=== PATIENT | female | born 1955 | race Caucasian/White ===

== ENCOUNTER 2018-12-28 06:51 | Day surgery (SDC) | payer BC ==
[~2018-12-28] VITALS: Ht 167.6 cm; Wt 85.7 kg
[~2018-12-28 06:51] MED LIST: ASPI81CH PO; ATECHL PO; ATEN25; ESTR.1TPW TOP; ESTR2 PO; POTA8 PO; [UNRECOGNIZED DRUG - REMARK]
[2018-12-28] MEDS ORDERED: METO50ER (07:25)
--- NOTE | 2018-12-28 07:27 | NUR ---
12/28/18 0727 Martita Franklin 1 MISSED IV IN RW BY MA VEIN BLEW 1 GOOD IV IN RAC PT TOW
== END 2018-12-28 08:35 | disposition home or self-care (01) ==
LOC: ORSCSDS 06:51
PROVIDERS: Surgery
PROC: 0DBM8ZX Excision of Descending Colon, Via Natural or Artificial Opening Endoscopic, Diagnostic (ICD-10-PCS; principal; 2018-12-28 08:00)
DX: Z12.11 Encounter for screening for malignant neoplasm of colon (principal); Z86.010 Personal history of colon polyps; K63.5 Polyp of colon; K57.30 Diverticulosis of large intestine without perforation or abscess without bleeding; I10 Essential (primary) hypertension; E78.5 Hyperlipidemia, unspecified; F17.210 Nicotine dependence, cigarettes, uncomplicated; Z79.899 Other long term (current) drug therapy
CPT/HCPCS: 88305; J0330; J0461; J2405; J2704; J7120

== ENCOUNTER → 2021-02-17 | Outpatient (CLI) | payer MEDICARE, OTHER ==
[~2021-02-17] MED LIST changes: +ATOR20 PO; +CO Q10100 MG PO; -ESTR.1TPW TOP; +ESTRADIOL1 M1 PO; +METO50ER PO; +NAPR220 PO; +XARELTO20 MG PO
== END | disposition home or self-care (01) ==
LOC: LAB SHORT 14:49
DX: N30.01 Acute cystitis with hematuria (principal)
CPT/HCPCS: 87086

== ENCOUNTER → 2022-01-20 | Outpatient (CLI) | payer MEDICARE | END | disposition home or self-care (01) | LOC: LAB SHORT 16:30 → LAB 16:30 | DX: N30.01 Acute cystitis with hematuria (principal) | CPT/HCPCS: 87077; 87086; 87186 ==

== ENCOUNTER → 2022-01-26 | Outpatient (CLI) | payer MEDICARE | END | disposition home or self-care (01) | LOC: LAB SHORT 10:14 → LAB 10:14 | DX: E55.9 Vitamin D deficiency, unspecified (principal) | CPT/HCPCS: 82306 ==

== ENCOUNTER → 2022-09-08 | Outpatient (CLI) | payer MEDICARE ==
[2022-09-08 15:55] LABS: BASOPHILS ABSOLUTE AUTO 0.05 K/mm3 (0.00-0.23); BASOPHILS PERCENT AUTO 1 % (0-2); EOSINOPHILS ABSOLUTE AUTO 0.12 K/mm3 (0.00-0.68); EOSINOPHILS PERCENT AUTO 2 % (0-6); Hematocrit 45.5 % (33.0-51.0); Hemoglobin 14.9 g/dL (11.5-16.0); IMMATURE GRAN ABSOLUTE AUTO 0.01 K/mm3 (0.00-0.10); IMMATURE GRAN PERCENT AUTO 0 % (0-1); LYMPHOCYTES ABSOLUTE AUTO 2.13 K/mm3 (0.84-5.20); LYMPHOCYTES PERCENT AUTO 42 % (21-46); MONOCYTES ABSOLUTE AUTO 0.47 K/mm3 (0.16-1.47); MONOCYTES PERCENT AUTO 9 % (4-13); Mean Corpuscular HGB 29.8 pg (26.0-34.0); Mean Corpuscular HGB Conc 32.7 g/dL (31.5-36.5); Mean Corpuscular Volume 91 fL (80-100); Mean Platelet Volume 11.8 fL (9.1-12.4); NEUTROPHILS ABSOLUTE AUTO 2.35 K/mm3 (1.96-9.15); NEUTROPHILS PERCENT AUTO 46 % (41-73); Platelet Count 219 K/mm3 (150-400); RDW Coefficient Variation 13.2 % (11.7-14.2); RDW Standard Deviation 44.2 fL (35.1-46.3); White Blood Cell Count 5.13 K/mm3 (4.00-11.30)
[2022-09-08 16:06] LABS: Alanine Aminotransfer (ALT/SGP 31 U/L (12-78); Albumin, Blood 3.6 g/dL (3.4-5.0); Albumin/Globulin Ratio 1.2 (0.8-1.8); Alk Phos 101 U/L (50-136); Anion Gap 7 mmol/L (6-16); Aspartate Aminotrans (AST/SGOT 19 U/L (12-37); Bilirubin, Total 0.6 mg/dL (0.1-1.0); Blood Urea Nitrogen 16 mg/dL (8-24); Bun/Creatinine Ratio 28.3 (12.0-20.0); CHOL/HDL RATIO 3.8; CO2, Blood 26 mmol/L (21-32); Calcium, Blood 8.7 mg/dL (8.5-10.1); Chloride, Blood 110 mmol/L (98-108); Cholesterol 158 mg/dL (50-200); Creatinine, Blood 0.57 mg/dL (0.40-1.00); Globulin, Blood 2.9 g/dL (2.2-4.0); Glomerular Filtration Rate 99 (60-); Glucose, Blood 120 mg/dL (70-99); HDL Cholesterol 42 mg/dL (>39); LDL/HDL RATIO 1.9; Low Density Lipoprotein Chol 78 mg/dL (0-110); Potassium, Blood 4.3 mmol/L (3.5-5.5); Sodium, Blood 143 mmol/L (136-145); Total Protein, Blood 6.5 g/dL (6.4-8.2); Triglycerides 191 mg/dL (30-160); Very Low Density Lipoprot Chol 38 mg/dL (6-32)
== END | disposition home or self-care (01) ==
LOC: LAB SHORT 08:50 → LAB 08:50
PROVIDERS: Hospitalist
DX: I48.0 Paroxysmal atrial fibrillation (principal); I10 Essential (primary) hypertension
CPT/HCPCS: 80053; 80061; 85025

== ENCOUNTER → 2023-04-25 | Outpatient (CLI) | payer MEDICARE ==
[2023-04-25 16:24] LABS: BASOPHILS ABSOLUTE AUTO 0.06 K/mm3 (0.00-0.23); BASOPHILS PERCENT AUTO 1 % (0-2); EOSINOPHILS PERCENT AUTO 1 % (0-6); Hematocrit 44.4 % (33.0-51.0); Hemoglobin 14.7 g/dL (11.5-16.0); IMMATURE GRAN ABSOLUTE AUTO 0.02 K/mm3 (0.00-0.10); IMMATURE GRAN PERCENT AUTO 0 % (0-1); LYMPHOCYTES ABSOLUTE AUTO 2.77 K/mm3 (0.84-5.20); LYMPHOCYTES PERCENT AUTO 40 % (21-46); MONOCYTES ABSOLUTE AUTO 0.55 K/mm3 (0.16-1.47); MONOCYTES PERCENT AUTO 8 % (4-13); Mean Corpuscular HGB 29.9 pg (26.0-34.0); Mean Corpuscular HGB Conc 33.1 g/dL (31.5-36.5); Mean Corpuscular Volume 90 fL (80-100); Mean Platelet Volume 11.7 fL (9.1-12.4); NEUTROPHILS ABSOLUTE AUTO 3.51 K/mm3 (1.96-9.15); NEUTROPHILS PERCENT AUTO 50 % (41-73); Platelet Count 230 K/mm3 (150-400); RDW Standard Deviation 43.2 fL (35.1-46.3); Red Blood Cell Count 4.92 M/mm3 (3.80-5.20); White Blood Cell Count 7.01 K/mm3 (4.00-11.30)
[2023-04-26 14:11] LABS: A/G RATIO 1.9 (1.2-2.2); BILIRUBIN, TOTAL 0.6 mg/dL (0.0-1.2); CALCIUM, SERUM 9.3 mg/dL (8.7-10.3); CREATININE, SERUM 0.61 mg/dL (0.57-1.00); GLOBULIN, TOTAL 2.4 g/dL (1.5-4.5); POTASSIUM, SERUM 4.4 mmol/L (3.5-5.2); PROTEIN, TOTAL, SERUM 6.9 g/dL (6.0-8.5)
== END | disposition home or self-care (01) ==
LOC: LAB 12:00 → LAB SHORT 12:00
PROVIDERS: Hospitalist
DX: L50.9 Urticaria, unspecified (principal)
CPT/HCPCS: 80053; 85025

== ENCOUNTER 2023-11-12 08:35 | Inpatient (IN) | payer MEDICARE ==
[2023-11-12] VITALS (37 sets, daily range): BP systolic 83–115; BP diastolic 41–92
[~2023-11-12] VITALS: Ht 154.9 cm; Wt 102.5 kg
[2023-11-12] MEDS ORDERED: propofoL 100 ML IV ONE (08:37)
[2023-11-12] MEDS ORDERED: propofoL 100 ML IV SCH (08:45)
[2023-11-12 08:51] LABS: BASOPHILS ABSOLUTE AUTO 0.06 K/mm3 (0.00-0.23); BASOPHILS PERCENT AUTO 1 % (0-2); EOSINOPHILS ABSOLUTE AUTO 0.28 K/mm3 (0.00-0.68); EOSINOPHILS PERCENT AUTO 3 % (0-6); Hematocrit 44.4 % (33.0-51.0); Hemoglobin 14.5 g/dL (11.5-16.0); IMMATURE GRAN ABSOLUTE AUTO 0.06 K/mm3 (0.00-0.10); IMMATURE GRAN PERCENT AUTO 1 % (0-1); LYMPHOCYTES ABSOLUTE AUTO 5.65 K/mm3 (0.84-5.20); LYMPHOCYTES PERCENT AUTO 51 % (21-46); MONOCYTES ABSOLUTE AUTO 0.44 K/mm3 (0.16-1.47); MONOCYTES PERCENT AUTO 4 % (4-13); Mean Corpuscular HGB 30.4 pg (26.0-34.0); Mean Corpuscular HGB Conc 32.7 g/dL (31.5-36.5); Mean Corpuscular Volume 93 fL (80-100); Mean Platelet Volume 10.6 fL (9.1-12.4); NEUTROPHILS ABSOLUTE AUTO 4.57 K/mm3 (1.96-9.15); NEUTROPHILS PERCENT AUTO 41 % (41-73); Platelet Count 241 K/mm3 (150-400); RDW Coefficient Variation 13.2 % (11.7-14.2); RDW Standard Deviation 45.6 fL (35.1-46.3); Red Blood Cell Count 4.77 M/mm3 (3.80-5.20); White Blood Cell Count 11.06 K/mm3 (4.00-11.30)
[2023-11-12 08:56] LABS: Base Excess Venous -8.5 mmol/L; PCO2 Venous 63.7 mmHg (38-42); pH Blood Venous 7.12 (7.34-7.37)
[2023-11-12 09:10] LABS: Albumin, Blood 3.5 g/dL (3.4-5.0); Bilirubin, Total 0.6 mg/dL (0.1-1.0); Bun/Creatinine Ratio 27.9 (12.0-20.0); Calcium, Blood 7.8 mg/dL (8.5-10.1); Creatinine, Blood 0.68 mg/dL (0.40-1.00); Globulin, Blood 3.6 g/dL (2.2-4.0); Potassium, Blood 3.9 mmol/L (3.5-5.5); Total Protein, Blood 7.1 g/dL (6.4-8.2)
[2023-11-12] MEDS ORDERED: CefTRIAXone Sodium 1,000 MG in NS 100 ML IV ONE (09:10)
[2023-11-12] MEDS ORDERED: Azithromycin 500 MG in NS 250 ML IV ONE (09:10)
[2023-11-12] MEDS ORDERED: Furosemide 10 MG/ML 4ML Vial IV ONE (09:35)
[2023-11-12 10:00] LABS: Influenza A, PCR NEGATIVE (NEGATIVE); Influenza B, PCR NEGATIVE (NEGATIVE); Resp Syncytial Virus, PCR NEGATIVE (NEGATIVE); SARS-Cov-2 (COVID-19) PCR, MMC NEGATIVE (NEGATIVE)
[2023-11-12] MEDS ORDERED: FentaNYL Citrate 50 MCG/ML 2 ML Injection IV ONE (10:10)
[2023-11-12] MEDS ORDERED: Nitroglycerin 1 INCH/GM PKT TOP ONE (10:25)
[2023-11-12] MEDS ORDERED: Acetaminophen 325 MG TABLET PO PRN (11:30)
[2023-11-12] MEDS ORDERED: Midazolam HCL 1 MG/ML 5MLVIAL IV ONE (11:30)
[2023-11-12] MEDS ORDERED: FentaNYL Citrate 50 MCG/ML 2 ML Injection IV PRN (11:30)
[2023-11-12 13:29] LABS: PCO2 Arterial 39.7 mmHg (35-45); PO2 Arterial 71.6 mmHg (80-100); pH Blood Arterial 7.42 (7.35-7.45)
[2023-11-12 13:35] LABS: Source, Urine Foley catheter
[2023-11-12 13:43] LABS: Appearance, Urine Clear (Clear); Bilirubin, Urine Neg (Neg); Blood, Urine Neg (Neg); Glucose Qualitative, Urine Neg (Neg); Ketones, Urine Neg (Neg); Leukocyte Esterase, Urine Neg (Neg); Nitrite, Urine Neg (Neg); Protein, Urine Neg (Neg); Urobilinogen, Urine NORM (Normal)
[2023-11-12 13:44] LABS: International Normalized Ratio 1.11; Prothrombin Time Results 11.8 Sec (9.7-11.5)
[2023-11-12] MEDS ORDERED: CLIMARA1 EACH TOP (13:45)
[2023-11-12 13:48] LABS: Anti-Xa UFH, PHA Monitoring 1.42 IU/mL
[2023-11-12 13:51] LABS: Color, Urine Pale Yellow (P-Yellow)
[2023-11-12] MEDS ORDERED: Hydrogen Peroxide 1.5 % Solution MT SCH (16:00)
[2023-11-12 16:15] LABS: Bun/Creatinine Ratio 26.7 (12.0-20.0); Calcium, Blood 8.5 mg/dL (8.5-10.1); Creatinine, Blood 0.64 mg/dL (0.40-1.00); Potassium, Blood 3.7 mmol/L (3.5-5.5)
[2023-11-12] MEDS ORDERED: NS 500 ML IV ONE ×2 (16:53→16:55)
[2023-11-12] MEDS ORDERED: Lactated Ringer's 1,000 ML IV SCH (17:30)
--- NOTE | 2023-11-12 17:35 | NUR ---
REASSESSMENT PT REMAINS INTUBATED AND SEDATED. PT'S BP HAS BEEN BORDERLINE WITH MAP 60-64. SPOKE WITH DR. FERRER AND HE GAVE ORDERS FOR 500ML NS BOLUS. PT'S MAP RESPONDED TO THE FLUID, INCREASING TO THE 70S, SO DR. FERRER ORDERED MAINTENANCE FLUIDS. ECHO COMPLETED AND RESULTS REVIEWED BY DR. FERRER. LUNGS ARE CLEAR, SR WITH 1ST DEGREE AVB. HILLMAN DRAINING YELLOW URINE. OGT WITH SCANT LIGHT GREEN OUTPUT. PT'S WAS AT THE BEDSIDE AND WAS UPDATED BY NURSING STAFF AND DR. FERRER.
[2023-11-12] MEDS ORDERED: Furosemide 10 MG/ML 4ML Vial IV SCH (18:00)
--- NOTE | 2023-11-12 19:37 | NUR ---
Assumed care of pt at 1900 Pt resting on bed, rass score of -2. Will open eyes on command and make brief eye contact before dozing off. , Magen, at bedside- requests no visitors after he leaves for the evening. PT has propofol infusing at 30mcg/kg/min and LR @100ml/hr. PT on vent, settings ac/vc: 16/5/450/40. Tolerating well. Hr is nsr, rate of 63, bp soft 102/58- map>65. Pt skin intact and appropriate color for ethnicity- pink/warm/dry. Pt has temp probe krishnamurthy draining pale, hazy urine w/ that is pink tinged to gravity. Current temp 99.9. OG tube connected to low intermittent suction- yellow bilious drainage. ETT suctioning small amounts of white sputum. Plan of care ongoing.
[2023-11-12] MEDS ORDERED: Cetylpyridinium Chloride 1 EA MISC MT SCH (20:00)
[2023-11-12] MEDS ORDERED: Heparin Sodium,Porcine/0.5 NS 500 ML IV SCH (21:05)
[2023-11-13] VITALS (47 sets, daily range): BP systolic 106–184; BP diastolic 43–117
--- NOTE | 2023-11-13 05:07 | NUR ---
End of shift summary No acute events overnight. Current rass score -1. Pt sustains eye contact and follows commands. Using paper and pen to communicate or nodding yes/no. Propofol infusing at 30mcg/kg/min, LR at 100ml/hr, and heparin at 15units/kg/hr. Pt vent settings unchanged from start of shift. Tolerating well. Pt hr 50-60s NSR via continous radiographer cardiac catheterization. BP stable. No bowel movement this shift. Temp probe krishnamurthy patent and draining hazy, pale yellow urine to gravity. OG tube draining dark green/brown liquid- 450 out during shift. Bed back given to pt. Pt required one dose of pain medication with good effect. Plan of care ongoing.
[2023-11-13 05:08] LABS: BASOPHILS ABSOLUTE AUTO 0.04 K/mm3 (0.00-0.23); BASOPHILS PERCENT AUTO 0 % (0-2); EOSINOPHILS ABSOLUTE AUTO 0.06 K/mm3 (0.00-0.68); EOSINOPHILS PERCENT AUTO 1 % (0-6); Hematocrit 37.7 % (33.0-51.0); Hemoglobin 12.6 g/dL (11.5-16.0); IMMATURE GRAN ABSOLUTE AUTO 0.03 K/mm3 (0.00-0.10); IMMATURE GRAN PERCENT AUTO 0 % (0-1); LYMPHOCYTES ABSOLUTE AUTO 3.23 K/mm3 (0.84-5.20); LYMPHOCYTES PERCENT AUTO 32 % (21-46); MONOCYTES ABSOLUTE AUTO 0.75 K/mm3 (0.16-1.47); MONOCYTES PERCENT AUTO 7 % (4-13); Mean Corpuscular HGB 30.4 pg (26.0-34.0); Mean Corpuscular HGB Conc 33.4 g/dL (31.5-36.5); Mean Corpuscular Volume 91 fL (80-100); Mean Platelet Volume 10.4 fL (9.1-12.4); NEUTROPHILS ABSOLUTE AUTO 6.11 K/mm3 (1.96-9.15); NEUTROPHILS PERCENT AUTO 60 % (41-73); Platelet Count 176 K/mm3 (150-400); RDW Coefficient Variation 13.6 % (11.7-14.2); RDW Standard Deviation 45.4 fL (35.1-46.3); Red Blood Cell Count 4.14 M/mm3 (3.80-5.20); White Blood Cell Count 10.22 K/mm3 (4.00-11.30)
[2023-11-13] MEDS ORDERED: Dose Adjust by Pharmacy XX STA ×3 (05:46→19:35)
[2023-11-13 05:48] LABS: Albumin, Blood 3.1 g/dL (3.4-5.0); Albumin/Globulin Ratio 1.1 (0.8-1.8); Bun/Creatinine Ratio 26.4 (12.0-20.0); Creatinine, Blood 0.61 mg/dL (0.40-1.00); Globulin, Blood 2.9 g/dL (2.2-4.0); Magnesium, Blood 1.7 mg/dL (1.6-2.4); Phosphorus, Blood 2.6 mg/dL (2.5-4.9); Potassium, Blood 3.1 mmol/L (3.5-5.5)
[2023-11-13] MEDS ORDERED: Heparin Sodium 5000 Units/ML 1ML MDV IV ONE ×2 (05:50→12:40)
[2023-11-13] MEDS ORDERED: Pantoprazole Sodium 40 MG Injection IV SCH (06:00)
[2023-11-13] MEDS ORDERED: HydrALAZINE HCl 20 MG / ML 1ML Vial IV PRN (08:40)
[2023-11-13] MEDS ORDERED: Potassium Chloride 40 MEQ in NS 250 ML IV ONE (08:50)
[2023-11-13] MEDS ORDERED: Aspirin 300 MG Supp PR SCH (09:00)
[2023-11-13] MEDS ORDERED: Enoxaparin 40 MG/0.4 ML SYR SC SCH (09:00)
--- NOTE | 2023-11-13 09:19 | NUR ---
EXTUBATE PT'S PROPOFOL TURNED OFF AT 0715 FOR SEDATION VACATION AND PT QUICKLY BECAME ALERT, FOLLOWING COMMANDS AND WRITING LEGIBLY TO COMMUNICATE. RT NOTIFIED AND PT SWITCHED TO SPONTANEOUS FOR WEAN. PT TOLERATED WEAN WELL. ONLY CHANGE WAS PT WENT INTO AFIB WITH RATE IN THE 80S. DR. FERRER TO THE BEDSIDE FOR MORNING ROUNDS AFTER PT HAD BEEN ON WEAN FOR OVER 30 MINUTES AND GAVE ORDER TO EXTUBATE. PT EXTUBATED AND PUT ON 4L/NC AT 0915, SPO2 96%. PT AND HER , WHO HAS BEEN AT THE BEDSIDE, GIVEN POST EXTUBATION EDUCATION.
--- NOTE | 2023-11-13 13:44 | NUR ---
REASSESSMENT PT HAS DONE WELL SINCE EXTUBATION AND IS MAINTAINING SPO2 ABOVE 90% ON RA. LUNGS HAVE SOME COARSENESS IN THE BASES AND PT IS COUGHING UP A SMALL AMT OF ZARATE SPUTUM. PT REMAINS IN AFIB, RATE IN THE 80S. PT PASSED BEDSIDE SWALLOW SCREEN AND IS TOLERATING A FULL LIQUID DIET. PT STATES HER THROAT HAS BEEN SORE, SO WILL ADVANCE DIET SHE WISHES. HILLMAN REMOVED AND PT HAS VOIDED SINCE. PT GOT UP TO THE CHAIR WITH 1 PERSON ASSIST AND IS VISITING WITH FAMILY. PT'S HAS BEEN AT THE BEDSIDE AND WAS UPDATED BY YELENA BO AND GABRIELA.
--- NOTE | 2023-11-13 17:06 | NUR ---
SHIFT SUMMARY PT WAS EXTUBATED THIS MORNING AND IS MAINTAINING SPO2 GREATER THAN 90 ON RA. HER LUNGS ARE CLEAR THIS AFTERNOON, DIM IN THE BASES. SHE IS NOT COUGHING UP MUCH SPUTUM THIS MORNING. REMAISNIN AFIB, RATE IN THE 80S, BP STABLE. PT'S THROAT IS FEELING BETTER AND DIET WAS ADVANCED. VOIDING WITHOUT DIFFICULTY. THIS AFTERNOON DR. FERRER GAVE OK FOR PT TO BE PCU STATUS.
[2023-11-13] MEDS ORDERED: Atorvastatin 40 MG Tab PO SCH (18:00)
[2023-11-13] MEDS ORDERED: Metoprolol Succinate 50 MG TABCR PO ONE (19:55)
--- NOTE | 2023-11-13 21:48 | NUR ---
ASSUMPTION OF CARE: RECEIVED REPORT FROM LITO Robles RN AT 1915. PT ALERT AND ORIENTED X4. ANSWERS QUESTIONS, FOLLOWS COMMANDS AND IS COOPERATIVE WITH CARE. PT ON RA WITH SPO2 >95% WITH SPOT CHECKS. DENIES SOB. CHIEF CONTROLLER IN PLACE, AFIB WITH HR 90'S-100'S. SBP 180'S. CALL PLACED TO DR. HAMM, HOME DOSE OF METOPROLOL RESTARTED AND GIVEN THIS EVENING. PT DENIES CHEST PAIN/PRESSURE. AFEBRILE. PIVS TO RAC/LAC AND LH PATENT. HEPARIN INFUSING AT 21 UNITS/KG/HR. PT TOLERATING PO INTAKE. ABLE TO AMBULATE TO BATHROOM WITH ASSIST. VOIDING YELLOW URINE. AT BEDSIDE, UPDATED TO PLAN OF CARE AND LEFT FOR THE EVENING. PT PCU STATUS, WILL BE TRANSFERRING TO PCU 6 ONCE REPORT IS GIVEN. BED LOW AND LOCKED, CALL LIGHT IN REACH.
--- NOTE | 2023-11-13 22:10 | NUR ---
Pt transferred to PCU room 6 Pt arrives on unit for ICU via wheelchair, transfers w/ steady gait and stand by line assist. Pt is alert and oriented- speaking in full sentances and pleasant/cooperative. Pt is on room air, o2 sats are 95%, lung sounds clear. Pt attatched to tele monitor- afib rate of 90s observed. Bp stable. Pt denies cp or sob at this time. Pt has heparin infusing to IV in left hand at rate of 21units/kg/hr. Pt provided call light and she will call for any needs that arise. Plan for angiogram tomorrow am, pt informed she will be NPO after midnight. Plan of care ongoing.
[2023-11-14] VITALS (13 sets, daily range): BP systolic 84–175; BP diastolic 59–113
[2023-11-14 01:47] LABS: BASOPHILS ABSOLUTE AUTO 0.06 K/mm3 (0.00-0.23); BASOPHILS PERCENT AUTO 1 % (0-2); EOSINOPHILS ABSOLUTE AUTO 0.19 K/mm3 (0.00-0.68); EOSINOPHILS PERCENT AUTO 2 % (0-6); Hematocrit 39.8 % (33.0-51.0); Hemoglobin 13.5 g/dL (11.5-16.0); IMMATURE GRAN ABSOLUTE AUTO 0.03 K/mm3 (0.00-0.10); IMMATURE GRAN PERCENT AUTO 0 % (0-1); LYMPHOCYTES ABSOLUTE AUTO 3.88 K/mm3 (0.84-5.20); LYMPHOCYTES PERCENT AUTO 44 % (21-46); MONOCYTES ABSOLUTE AUTO 0.76 K/mm3 (0.16-1.47); MONOCYTES PERCENT AUTO 9 % (4-13); Mean Corpuscular HGB 30.4 pg (26.0-34.0); Mean Corpuscular HGB Conc 33.9 g/dL (31.5-36.5); Mean Corpuscular Volume 90 fL (80-100); NEUTROPHILS ABSOLUTE AUTO 3.87 K/mm3 (1.96-9.15); NEUTROPHILS PERCENT AUTO 44 % (41-73); Platelet Count 195 K/mm3 (150-400); RDW Coefficient Variation 13.3 % (11.7-14.2); RDW Standard Deviation 43.6 fL (35.1-46.3); Red Blood Cell Count 4.44 M/mm3 (3.80-5.20); White Blood Cell Count 8.79 K/mm3 (4.00-11.30)
[2023-11-14 02:07] LABS: Albumin, Blood 3.2 g/dL (3.4-5.0); Albumin/Globulin Ratio 0.9 (0.8-1.8); Bilirubin, Total 0.9 mg/dL (0.1-1.0); Bun/Creatinine Ratio 20.1 (12.0-20.0); Calcium, Blood 8.2 mg/dL (8.5-10.1); Creatinine, Blood 0.5 mg/dL (0.40-1.00); Globulin, Blood 3.5 g/dL (2.2-4.0); Potassium, Blood 3.3 mmol/L (3.5-5.5); Total Protein, Blood 6.7 g/dL (6.4-8.2)
[2023-11-14] MEDS ORDERED: Dose Adjust by Pharmacy XX STA ×2 (02:11→09:49)
[2023-11-14] MEDS ORDERED: Heparin Sodium 5000 Units/ML 1ML MDV IV ONE (02:15)
--- NOTE | 2023-11-14 05:07 | NUR ---
End of shift summary No acute events overnight. Pt is aox4, pleasant, and cooperative w/ care. Heparin infusing as ordered at 23units/kg/hr. Pt NPO after midnight in preparation for procedure this am. Pt on room air and maintaining o2 sats>95%. HR 70s via continuous director of cardiac cath lab. BP elavated, systolic 150s. Pt afebrile. Stand by assist for line management provided for pt restroom needs- ambulated self w/ steady gait. Call light w/in reach and pt using appropriately. Plan of care ongoing.
--- NOTE | 2023-11-14 07:25 | NUR ---
INITIAL ASSESSMENT: Patient is awake alert and oriented x4, she reports she had a stroke approx. 4 years ago and still has some residual expressive aphasia. She denies pain at this time. HR Irreg. currently A-Flutter in the 70s, she is hypertensive this am with her SBP in the 170s, AM metoprolol given will reassess. LS DIM in the bases, biox 96% on RA. She states she has some SOB with small amount of activity. BT+. PPP, trace edema to BLE. Patient is currently NPO for an angiogram. Hep gtt infusing at 24u/kg/hr. She denies other needs at this time. Call light in reach.
[2023-11-14] MEDS ORDERED: Metoprolol Succinate 50 MG TABCR PO SCH (09:00)
[2023-11-14] MEDS ORDERED: Potassium Chloride 20 MEQ TabCR PO ONE (09:00)
[2023-11-14] MEDS ORDERED: Aspirin 81 MG Chew PO SCH (09:00)
[2023-11-14] MEDS ORDERED: Midazolam HCl 1MG / ML 2ML Vial ONE (09:32)
[2023-11-14] MEDS ORDERED: FentaNYL Citrate 50 MCG/ML 2 ML Injection ONE (09:32)
[2023-11-14] MEDS ORDERED: NS 1,000 ML IV ONE ×2 (09:32→09:54)
--- NOTE | 2023-11-14 09:50 | NUR ---
Update: Patients blood pressure was still 170s systolic after am med given, 10 mg Hydralazine given, BP came down to the 150s systolic. Potassium supplement given per MD orders. Dr. Orozco at bedside, no new orders.
[2023-11-14] MEDS ORDERED: Verapamil HCL 2.5 MG/ML 2ML Injection ONE (09:53)
[2023-11-14] MEDS ORDERED: Heparin Sodium 1000 Units/ML 10ML MDV ONE (09:53)
[2023-11-14] MEDS ORDERED: Nitroglycerin 2 MG/20 ML BTL ONE (09:54)
[2023-11-14] MEDS ORDERED: NS 250 ML IV ONE (09:54)
[2023-11-14] MEDS ORDERED: HydrALAZINE HCl 20 MG / ML 1ML Vial ONE (11:01)
[2023-11-14] MEDS ORDERED: Spironolactone 25 MG Tab PO SCH (13:15)
[2023-11-14] MEDS ORDERED: Carvedilol12.5 MG PO (16:11)
[2023-11-14] MEDS ORDERED: SPIR25 PO (16:11)
[2023-11-14] MEDS ORDERED: MASOPHEN325 M4 PO (16:11)
[2023-11-14] MEDS ORDERED: Carvedilol 6.25 MG Tab PO SCH (17:00)
--- NOTE | 2023-11-14 17:15 | NUR ---
Discharge: Patient had her angiogram completed, it was clear. Left radial site recovered without bleeding or hematoma. Dr. Orozco has been to see the patient, she is cleared to be discharged. and patient verbalize understanding of discharge instructions. Patient to home via WC with her .
[2023-11-15] MEDS ORDERED: Spironolactone 25 MG Tab PO SCH (09:00)
== END 2023-11-14 17:45 | disposition home or self-care (01) | DRG 208 ==
LOC: ER 08:35 → ICUE 11:48 → PCU 11-13 22:03
PROVIDERS: Emergency Medicine; Internal Medicine Critical Care Medicine; ADMIT Internal Medicine
PROC: 5A1945Z Respiratory Ventilation, 24-96 Consecutive Hours (ICD-10-PCS; principal; 2023-11-12)
PROC: B2111ZZ Fluoroscopy of Multiple Coronary Arteries using Low Osmolar Contrast (ICD-10-PCS; 2023-11-14)
PROC: 4A023N7 Measurement of Cardiac Sampling and Pressure, Left Heart, Percutaneous Approach (ICD-10-PCS; 2023-11-14)
DX: J96.01 Acute respiratory failure with hypoxia (principal); J81.0 Acute pulmonary edema; I21.4 Non-ST elevation (NSTEMI) myocardial infarction; R73.9 Hyperglycemia, unspecified; I10 Essential (primary) hypertension; I48.91 Unspecified atrial fibrillation; Z86.73 Personal history of transient ischemic attack (TIA), and cerebral infarction without residual deficits; Z86.79 Personal history of other diseases of the circulatory system; Z79.01 Long term (current) use of anticoagulants; Z79.899 Other long term (current) drug therapy; Z88.5 Allergy status to narcotic agent; Z87.891 Personal history of nicotine dependence; Z90.710 Acquired absence of both cervix and uterus; Z98.890 Other specified postprocedural states; Z90.722 Acquired absence of ovaries, bilateral; Z90.79 Acquired absence of other genital organ(s)
CPT/HCPCS: 0241U; 36415; 36600; 51702; 71045; 76937; 80048; 80053; 81003; 82803; 83605; 83735; 83880; 84100; 84484; 85025; 85520; 85610; 85730; 87070; 87205; 93005; 93010; 93306; 93454; 94002; 94003; 96365-59; 96367-59; 96375-59; 99152; 99153; 99291-25; 99292; A9270; C1769; C1894; C9113; J0360; J0456; J0696; J1644; J1940; J2250; J2704; J3010; J3480; J7030; J7040; J7050; J7120; Q9967

== ENCOUNTER → 2024-06-18 | Outpatient (CLI) | payer MEDICARE ==
[~2024-06-18] MED LIST changes: +CLIMARA1 EACH TOP; +Carvedilol12.5 MG PO; +MASOPHEN325 M4 PO; +SPIR25 PO
[2024-06-18 19:53] LABS: Bun/Creatinine Ratio 32.1 (12.0-20.0); Calcium, Blood 9.1 mg/dL (8.5-10.1); Creatinine, Blood 0.59 mg/dL (0.40-1.00); Potassium, Blood 4.1 mmol/L (3.5-5.5)
== END | disposition home or self-care (01) ==
LOC: LAB 18:17 → LAB SHORT 18:17
PROVIDERS: Hospitalist
DX: I10 Essential (primary) hypertension (principal)
CPT/HCPCS: 80048